=== PATIENT | male | born 1980 | race Caucasian/White ===

== ENCOUNTER 2016-07-07 10:29 | Emergency (ER) | payer BC ==
[~2016-07-07] VITALS: Ht 180.3 cm; Wt 117.7 kg
[2016-07-07 11:05] LABS: MCH 29.3 PG (29.0-34.0); MEAN PLAT.VOLUME 9.8 uM^3 (9.0-12.4); PLATELET COUNT 257 K/uL (156-360); RBC DIS.WIDTH-CV 12.5 % (11.8-14.6); RED BLOOD COUNT 5.23 M/uL (4.00-5.50); WHITE BLOOD COUNT 5.8 K/uL (4.1-10.2)
[2016-07-07 11:16] LABS: CHLORIDE 107 mEq/L (99-109); POTASSIUM 3.4 mEq/L (3.7-5.4); SODIUM 139 mEq/L (136-147)
[2016-07-07 11:18] LABS: GLUCOSE 123 mg/dL (70-99)
[2016-07-07 11:19] LABS: ANION GAP 12 MEQ/L (2-14)
[2016-07-07 11:22] LABS: GFR ESTIMATE (CALCULATED) > 59 mL/min/
[2016-07-07 11:23] LABS: UREA NITROGEN (BUN) 10 mg/dL (9-23)
[2016-07-07 11:27] LABS: TROP-I INTERPRETATION NEGATIVE; TROPONIN-I < 0.01 ng/mL (0.0-0.30)
[2016-07-07 12:44] VITALS: BP 134/77
== END 2016-07-07 15:07 | disposition home or self-care (01) ==
LOC: EME 10:29
PROVIDERS: Emergency Medicine
DX: Z04.1 Encounter for examination and observation following transport accident (principal); R55 Syncope and collapse; R53.1 Weakness; R20.2 Paresthesia of skin
CPT/HCPCS: 70450; 80048 91; 84484; 85027; 93005; 99281; 99282; J7030